=== PATIENT | male | born 1995 | race African-American/Black ===

== ENCOUNTER 2017-05-03 11:48 | Inpatient (IN) | payer MEDICAID ==
[~2017-05-03] VITALS: Ht 172.7 cm; Wt 97.7 kg
[~2017-05-03 11:48] MED LIST: OLAN10TA3 PO
[2017-05-03] MEDS ORDERED: HALOPERIDOL 5 MG TABLET PO PRN (18:30)
[2017-05-03] MEDS ORDERED: ZOLPIDEM TARTRATE 10 MG TABLET PO PRN (18:30)
[2017-05-03 18:53] VITALS: BP 126/77
[2017-05-03] MEDS ORDERED: INFLUENZA VIRUS VACCINE QVS 2017-18 (3YR+)/PF 60 MCG/0.5 ML SYRINGE IM ONE (19:00)
[2017-05-04 02:51] VITALS: BP 116/65
[2017-05-04 08:17] VITALS: BP 135/60
[2017-05-04 16:00] VITALS: BP 129/69
[2017-05-04] MEDS: DIVALPROEX SODIUM 500 MG DR TABLET PO SCH (16:54)
[2017-05-04] MEDS: OLANZapine 10 MG TABLET PO SCH (20:30)
[2017-05-05 08:19] VITALS: BP 130/62
[2017-05-05 08:23] LABS: BASOPHILS % (AUTO) 0.5 % (0.0-2.0); EOSINOPHILS % (AUTO) 1.6 % (1.0-6.0); HEMOGLOBIN 15.2 g/dL (13.5-17.5); LYMPHOCYTES # (AUTO) 2.7 K/uL (1.0-4.8); LYMPHOCYTES % (AUTO) 43.2 % (22.0-44.0); MEAN CORPUSCULAR HGB CONC 33.9 G/dL (31.0-37.0); MEAN CORPUSCULAR VOLUME 91 fL (80-100); MONOCYTES % (AUTO) 6.3 % (2.0-9.0); NEUTROPHILS % (AUTO) 48.4 % (40.0-70.0); PLATELET COUNT (AUTO) 237 K/uL (150-450); RED BLOOD CELL COUNT(AUTO) 4.92 MIL/uL (4.50-5.90); RED CELL DISTRIBUTION WIDTH 14.3 % (11.5-14.5); WHITE BLOOD COUNT (AUTO) 6.2 K/uL (4.5-11.0)
[2017-05-05 08:24] LABS: MONOCYTES # (AUTO) 0.4 K/uL (0.1-1.0)
[2017-05-05] MEDS: DIVALPROEX SODIUM 500 MG DR TABLET PO SCH ×2 (08:32→16:44)
[2017-05-05 08:56] LABS: ALANINE AMINOTRANSFERASE 38 U/L (12-78); ALBUMIN 3.8 g/dL (3.4-5.0); ANION GAP 1 mmol/L (8-16); ASPARTATE AMINOTRANSFERASE 36 U/L (15-37); BILIRUBIN,TOTAL 0.8 mg/dL (0.1-1.0); CALCIUM, TOTAL 8.6 mg/dL (8.8-10.5); CARBON DIOXIDE 34 mmol/L (22-29); CHLORIDE 103 mmol/L (98-107); CHOL/HDL RATIO 3.4 (4.2-7.3); CREATININE 1.04 mg/dL (0.60-1.30); GLOMERULAR FILTR. RATE CALC > 60 mL/min (>60); HEMOGLOBIN A1C 5.6 % (4.5-6.2); POTASSIUM 4.4 mmol/L (3.5-5.1); SODIUM SERUM 138 mmol/L (136-145); THYROID STIMULATING HORMONE 1.68 uIU/mL (0.36-3.74); TOTAL PROTEIN, SERUM 7.6 g/dL (6.4-8.2); UREA NITROGEN, BLOOD 16 mg/dL (7-18)
[2017-05-05 16:13] VITALS: BP 111/64
[2017-05-05] MEDS: OLANZapine 10 MG TABLET PO SCH (20:09)
[2017-05-06 07:04] VITALS: BP 131/74
[2017-05-06 08:05] VITALS: BP 116/67
[2017-05-06] MEDS: DIVALPROEX SODIUM 500 MG DR TABLET PO SCH ×2 (09:17→16:55)
[2017-05-06] MEDS: LORazepam 2 MG TABLET PO PRN ×2 (09:17→16:55)
[2017-05-06] MEDS: OLANZapine 5 MG TABLET PO SCH (10:32)
[2017-05-06 16:29] VITALS: BP 117/61
[2017-05-06] MEDS: OLANZapine 10 MG TABLET PO SCH (20:23)
[2017-05-07 06:27] VITALS: BP 106/70
[2017-05-07 08:20] VITALS: BP 130/64
[2017-05-07] MEDS: DIVALPROEX SODIUM 500 MG DR TABLET PO SCH ×2 (08:59→16:06)
[2017-05-07] MEDS: LORazepam 2 MG TABLET PO PRN ×2 (08:59→16:07)
[2017-05-07] MEDS: OLANZapine 5 MG TABLET PO SCH (08:59)
[2017-05-07 16:00] VITALS: BP 115/69
[2017-05-07] MEDS: OLANZapine 10 MG TABLET PO SCH (20:20)
[2017-05-08 07:17] VITALS: BP 128/70
[2017-05-08 08:24] VITALS: BP 126/73
[2017-05-08] MEDS: DIVALPROEX SODIUM 500 MG DR TABLET PO SCH ×2 (08:57→16:15)
[2017-05-08] MEDS: OLANZapine 5 MG TABLET PO SCH (08:57)
[2017-05-08] MEDS: LORazepam 2 MG TABLET PO PRN ×2 (08:57→16:15)
[2017-05-08 16:00] VITALS: BP 134/71
[2017-05-08] MEDS: OLANZapine 10 MG TABLET PO SCH (20:13)
[2017-05-09 06:39] VITALS: BP 108/72
[2017-05-09 08:18] VITALS: BP 116/71
[2017-05-09] MEDS: DIVALPROEX SODIUM 500 MG DR TABLET PO SCH ×2 (09:15→17:13)
[2017-05-09] MEDS: OLANZapine 5 MG TABLET PO SCH (09:15)
[2017-05-09 16:00] VITALS: BP 114/68
[2017-05-09] MEDS: LORazepam 2 MG TABLET PO PRN (17:14)
[2017-05-09] MEDS: OLANZapine 10 MG TABLET PO SCH (20:50)
[2017-05-10 06:24] VITALS: BP 128/78
[2017-05-10 08:06] VITALS: BP 108/61
[2017-05-10] MEDS: LORazepam 2 MG TABLET PO PRN ×2 (09:40→17:20)
[2017-05-10] MEDS: OLANZapine 5 MG TABLET PO SCH (09:41)
[2017-05-10] MEDS: DIVALPROEX SODIUM 500 MG DR TABLET PO SCH ×2 (09:41→17:20)
[2017-05-10 16:00] VITALS: BP 116/71
[2017-05-10] MEDS: OLANZapine 10 MG TABLET PO SCH (21:18)
[2017-05-11 06:28] VITALS: BP 123/69
[2017-05-11 08:12] VITALS: BP 104/68
[2017-05-11] MEDS: OLANZapine 5 MG TABLET PO SCH (09:51)
[2017-05-11] MEDS: DIVALPROEX SODIUM 500 MG DR TABLET PO SCH (09:51)
[2017-05-11] MEDS ORDERED: OLAN5TAB2 PO (11:53)
[2017-05-11] MEDS ORDERED: DIVA500T35 PO (11:53)
[2017-05-11] MEDS ORDERED: OLAN10TA3 PO (11:53)
== END 2017-05-11 13:15 | disposition home or self-care (01) | DRG 750 ==
LOC: B3A 18:21 → EDSTATUS 18:45 → B3A 05-07 17:46
DX: F25.1 Schizoaffective disorder, depressive type (principal); F17.200 Nicotine dependence, unspecified, uncomplicated; Z28.21 Immunization not carried out because of patient refusal
CPT/HCPCS: 83036; 84439; 84443; 87081